=== PATIENT | female | born 2000 | race African-American/Black ===

== ENCOUNTER 2023-07-03 07:53 | Emergency (ER) | payer OTHER ==
[2023-07-03 07:57] VITALS: BP 103/61; PULSE 83; RESP 18; TEMP 98.8; BMI 30.5
[2023-07-03] MEDS ORDERED: IBUPROFEN 600 MG TABLET (FP) PO ONE (08:43)
[2023-07-03] MEDS: IBUPROFEN 600 MG TABLET (FP) PO ONE (08:48)
== END 2023-07-03 09:36 | disposition home or self-care (01) ==
LOC: JER 07:53
DX: H57.89 Other specified disorders of eye and adnexa (principal); Y08.89XA Assault by other specified means, initial encounter
CPT/HCPCS: 99283-25